=== PATIENT | female | born 1975 | race Hispanic/Latino ===

== ENCOUNTER 2017-08-25 23:20 | Emergency (ER) | payer SELFPAY ==
[2017-08-26] MEDS ORDERED: LIDOCAINE HCL-MPF 1% 2ML VIAL ONE (00:06)
[2017-08-26] MEDS ORDERED: CEFTRIAXONE SODIUM 1 GM ONE (00:07)
== END 2017-08-26 00:28 | disposition home or self-care (01) ==
LOC: EDH 23:20
DX: J02.0 Streptococcal pharyngitis (principal)
CPT/HCPCS: 82948; 87804 ×2; 87880; 96372; 99284; J0696; J3490

== ENCOUNTER 2018-11-13 23:38 | Emergency (ER) | payer OTHER ==
[2018-11-14] MEDS ORDERED: TETANUS/DIPHTHERIA TOXOID [ADULT] 0.5 ML VIAL IM ONE (01:01)
== END 2018-11-14 01:21 | disposition home or self-care (01) ==
LOC: EDH 23:38
DX: S61.411A Laceration without foreign body of right hand, initial encounter (principal); W25.XXXA Contact with sharp glass, initial encounter; Y93.89 Activity, other specified; Y92.098 Other place in other non-institutional residence as the place of occurrence of the external cause; Y99.8 Other external cause status; F41.9 Anxiety disorder, unspecified
CPT/HCPCS: 12002; 90471; 90714

== ENCOUNTER 2018-11-21 17:40 | Emergency (ER) | payer SELFPAY | END 2018-11-21 18:21 | disposition home or self-care (01) | LOC: EDH 17:40 | DX: S61.216A Laceration without foreign body of right little finger without damage to nail, initial encounter (principal); F41.9 Anxiety disorder, unspecified; X58.XXXA Exposure to other specified factors, initial encounter; Y93.89 Activity, other specified; Y92.89 Other specified places as the place of occurrence of the external cause; Y99.8 Other external cause status | CPT/HCPCS: 29130; 99281 ==

== ENCOUNTER 2025-03-20 03:06 | Emergency (ER) | payer BC ==
[~2025-03-20] VITALS: Ht 167.6 cm; Wt 129.3 kg
[2025-03-20 03:07] VITALS: TEMP 96.2
--- NOTE | 2025-03-20 03:14 | ERN ---
ED Note History of Present Illness Stated Complaint: Patient comes because she has a abdominal pain she has been stooling every other day still passinggasno hematuria eugenio discharge Chief Complaint: Flank Pain Time Seen by MD: 03:13 Allergies: Coded Allergies: No Known Allergies (Unverified Allergy, Unknown, 03/20/25) Past Medical History Past Medical History: Diabetes-Type II, Hypertension Surgical History: Cholecystectomy, Review of System Dictation Constitutional: Negative for fever,chills, and weight loss Eyes: Negative for injury, pain,redness, and discharge ENT: Negative for injury,pain or swelling Cardiovascular: Negative for chest pain, palpitations, and edema Respiratory: Negative for shortness of breath, cough, and wheezing, Abdomen/GI: Negative for abdominal pain, nausea, vomiting, diarrhea, and constipation Back: Negative for injury and pain : Negative for injury, bleeding and discharge MS/Extremity: Negative for injury and deformity Skin: Negative for rash, and discoloration Neuro: Negative for headache, weakness, numbness, tingling, and seizure Psych: Negative for suicide ideation, homicidal ideation, and hallucinations Initial Vital Sign VS Vital Signs Date Time Temp Pulse Resp B/P (MAP) Pulse Ox O2 Delivery O2 Flow Rate FiO2 03/20/25 03:07 96.3 80 16 147/81 98 Room Air Physical Exam Dictation General: awake, alert, NAD Head/Face: Normocephalic, atraumatic Eyes: PERRL, EOMI, vision at baseline ENT: oral cavity clear, TMs clear, no signs of infection Neck: Trachea midline, supple, no nuchal rigidity Cardiovascular: RRR, normal S1/S2, No MRGs, no JVD Respiratory: CTAB, no respiratory distress, No rales or wheezes Abdomen: Soft, non-tender, non-distended, normal bowel sounds, no guarding or rebound. Skin: Warm, dry, normal turgor, no rash MS/Extremity: Pulses equal, no cyanosis, neurovascular intact, FROM Neuro: COAx4, GCS 15, strength 5/5, CN 2-12 intact, normal cerebellar exam, normal gait, Psych: Normal behavior, mood, and affect normal Results (Laboratory/Radiology) Laboratory/Radiology Laboratory Tests Test 03/20/25 03:44 White Blood Count 7.0 K/uL (4.8-10.8) Red Blood Count 5.87 MIL/uL (4.00-5.50) H Hemoglobin 16.6 g/dL (12.0-16.0) H Hematocrit 49.1 % (36-48) H Mean Corpuscular Volume 83.6 fL (79-99) Mean Corpuscular Hemoglobin 28.3 pg (27.0-33.0) Mean Corpuscular Hemoglobin Concent 33.8 g/dL (32.0-36.0) Red Cell Distribution Width 12.1 % (11.0-15.5) Platelet Count 219 K/uL (130-400) Mean Platelet Volume 10.5 fL (7.5-10.5) Immature Granulocyte % (Auto) 0.3 % (0-1) Neutrophils (%) (Auto) 55.2 % (40.0-77.0) Lymphocytes (%) (Auto) 36.1 % (21.0-51.0) Monocytes (%) (Auto) 5.1 % (3.0-13.0) Eosinophils (%) (Auto) 2.7 % (0.0-8.0) Basophils (%) (Auto) 0.6 % (0.0-5.0) Neutrophils # (Auto) 3.9 K/uL (1.8-7.7) Lymphocytes # (Auto) 2.5 K/uL (1.0-4.8) Monocytes # (Auto) 0.4 K/uL (0.1-1.0) Eosinophils # (Auto) 0.19 K/uL (0.00-0.70) Basophils # (Auto) 0.04 K/uL (0.00-0.20) Absolute Immature Granulocyte (auto 0.02 K/uL (0-1) Nucleated Red Blood Cells 0.0 % (0.0-0.19) Sodium Level 139 mmol/L (136-145) Potassium Level 3.5 mmol/L (3.5-5.1) Chloride Level 103 mmol/L (101-111) Carbon Dioxide Level 27 mmol/L (21-32) Blood Urea Nitrogen 15 mg/dL (7-18) Creatinine 0.6 mg/dL (0.5-1.0) Glomerular Filtration Rate Calc 109 mL/min (>90) Random Glucose 254 mg/dL (70-105) H Total Calcium 9.6 mg/dL (8.5-10.1) Total Bilirubin 1.6 mg/dL (0.2-1.0) H Aspartate Amino Transf (AST/SGOT) 30 U/L (10-37) Alanine Aminotransferase (ALT/SGPT) 63 U/L (12-78) Alkaline Phosphatase 167 U/L (50-136) H Troponin I High Sensitivity < 4 ng/L (4-50) L Total Protein 8.6 g/dL (6.0-8.3) H Albumin 4.1 g/dL (3.5-5.0) Lipase 66 U/L (16-77) ED Course ED Course Orders Procedure Category Date Status Time Cbc With Differential LAB 03/20/25 Complete 03:14 Comprehensive LAB 03/20/25 Complete Metabolic Panel 03:14 Troponin I High LAB 03/20/25 Complete Sensitivity 03:14 12 Lead Ekg Tracing- EKG 03/20/25 Complete Technical 03:14 Lactated Ringers PHA 03/20/25 Complete 1000ml (Lactated 03:30 Morphine 4mg Syg PHA 03/20/25 Complete (Morphine 4mg Syg) 03:30 Ondansetron 4mg Inj PHA 03/20/25 Complete (Zofran 4mg Inj) 03:30 Ct Abdomen/Pelvis W/O CT 03/20/25 Resulted Contrast 03:14 Chest 1vw RAD 03/20/25 Resulted 03:14 Lipase LAB 03/20/25 Complete 03:14 Current Medications Medications (Trade) Dose Ordered Sig/Anthony Route PRN Reason Start Time Stop Time Status Last Admin Dose Admin Lactated Ringer's 1,000 ml @ 0 mls/hr ONCE ONCE IV 03/20/25 03:30 03/20/25 03:31 DC 03/20/25 03:44 Morphine Sulfate (morPHINE 4MG SYG) 4 mg ONCE ONCE IVP 03/20/25 03:30 03/20/25 03:31 DC 03/20/25 03:44 Ondansetron HCl (zoFRAN 4MG INJ) 4 mg ONCE ONCE IVP 03/20/25 03:30 03/20/25 03:31 DC 03/20/25 03:43 Vital Signs Date Time Temp Pulse Resp B/P (MAP) Pulse Ox O2 Delivery O2 Flow Rate FiO2 03/20/25 03:07 96.3 80 16 147/81 98 Room Air Medical Decision Making MDM Patient is constipated I said we will Give her some constipation meds MDM: Differential diagnosis: Rationale: Tests considered and ordered secondary to shared decision making include: Previous outside records reviewed: Old ER visits. Risk of complication and/or morbidity or mortality of patient management: None Medications-Per medication reconciliation Need for hospitalization: Patient does not meet criteria for hospitalization. Need for emergency major/minor surgery: No There are no social concerns with this patient. Prescription drug management Prescriptions will include symptomatic care Patient's prior external medical records from other ER visits were reviewed by me as indicated. Prior testing and results from previous visits were reviewed. Prior tests were taken into account with medical decision making and resource utilization, independent historian/historians were used to obtain complete medical history. I independently interpreted the test that were performed, results were reviewed by me and considered findings on radiology if ordered. Medical management and examination interpretation discussions were had by me with other qualified healthcare professionals as indicated for the patient's care. DX & DISP Disposition: Discharge Departure Impression: Primary Impression: Constipation Condition: Stable Scripts Lactulose (Lactulose) 10 Gram/15 Ml Solution 30 ML PO BID for constipation, #500 ML 0 Refills Prov: ROSALIE KENNEY MD 03/20/25 Polyethylene Glycol 3350 (Miralax) 17 Gram Powd.pack 1 PACKET PO DAILY for constipation for 2 Days, #2 PACKET 0 Refills dissolve in water Prov: ROSALIE KENNEY MD 03/20/25 Docusate Sodium (Colace) 100 Mg Capsule 100 MG PO TID for constipation, #30 CAP 0 Refills Prov: ROSALIE KENNEY MD 03/20/25 Referrals: SELF,REFERRAL (PCP) ROSALIE KENNEY MD Mar 20, 2025 03:14
--- NOTE | 2025-03-20 03:25 | EKG ---
[facility] Test Date: 2025-03-20 Test Time: 03:20:29 Pat Name: MIKE PAGE Department: ED Room: Gender: F Size Worker: [id number] : 1975 Requested By: ROSALIE KENNEY Order Number: [id number] Reading MD: Juarez De La O Measurements Intervals [place] Rate: 72 P: -10 VA: 176 QRS: -6 QRSD: 80 T: 4 QT: 389 QTc: 426 Interpretive Statements Sinus rhythm Anteroseptal infarct, age indeterminate No previous ECG available for comparison Electronically Signed On 03-22-2025 00:02:02 CDT by Juarez De La O Please click the below link to view image of tracing.
[2025-03-20] MEDS: LACTATED RINGERS 1000ML 1,000 ML IV ONE (03:44)
[2025-03-20 03:52] LABS: IMMATURE GRANULOCYTE ABSOLUTE 0.02 K/uL (0-1); NUCLEATED RED BLOOD CELLS 0.0 % (0.0-0.19); PLATELET COUNT (AUTO) 219 K/uL (130-400); RED BLOOD CELL COUNT(AUTO) 5.87 MIL/uL (4.00-5.50); RED CELL DISTRIBUTION WIDTH 12.1 % (11.0-15.5); WHITE BLOOD COUNT (AUTO) 7.0 K/uL (4.8-10.8)
--- NOTE | 2025-03-20 04:05 | HMCIMG ---
EXAM: CR Chest, 1 view CLINICAL HISTORY: Shortness of breath. COMPARISON: Chest radiograph dated 04/16/2013. FINDINGS: The lungs show no infiltrates or other acute findings. No pleural effusion or pneumothorax. The cardiomediastinal silhouette is within normal limits. No acute osseous abnormality. IMPRESSION: No acute cardiopulmonary process is evident. No interval changes. /[place]
[2025-03-20 04:09] LABS: CREATININE 0.6 mg/dL (0.5-1.0); GLOMERULAR FILTR. RATE CALC 109.0 mL/min (>90); GLUCOSE,RANDOM 254.0 mg/dL (70-105); SODIUM SERUM 139.0 mmol/L (136-145); UREA NITROGEN, BLOOD 15.0 mg/dL (7-18)
--- NOTE | 2025-03-20 04:09 | HMCIMG ---
EXAM: CT Abdomen and Pelvis without IV contrast CLINICAL HISTORY: Pain. TECHNIQUE: Thin collimated axial CT images of the abdomen and pelvis were obtained with sagittal and coronal reformatted images also submitted. CT scan is done according to ALARA (As Low As Reasonably Achievable). CONTRAST: None. COMPARISON: None. FINDINGS: The included lungs are clear. Mild fatty liver. Status post cholecystectomy. No focal abnormality within the pancreas, spleen, or adrenals. There is a punctate nonobstructive calculus at the left renal lower pole. No ureteral calculus or hydronephrosis bilaterally. Unremarkable urinary bladder. 2 cm anterior wall subserosal uterine fibroid. Unremarkable ovaries. No obvious bowel wall thickening, dilatation, or obstruction. Unremarkable appendix. A component of mild constipation is present in the colon. Grossly unremarkable abdominal vessels. No pathological lymphadenopathy in the abdomen or pelvis. No ascites or pneumoperitoneum. No acute bony abnormality is evident. Small, uncomplicated fat-containing umbilical hernia. IMPRESSIONS: No acute process in the abdomen or pelvis. Punctate nonobstructive left renal calculus. Subserosal uterine fibroid. Uncomplicated umbilical hernia. Mild fatty liver. A component of mild constipation is present in the colon. /[place]
[2025-03-20 04:12] LABS: ASPARTATE AMINOTRANSFERASE 30.0 U/L (10-37); TOTAL PROTEIN, SERUM 8.6 g/dL (6.0-8.3)
[2025-03-20] MEDS ORDERED: POLY17PO4 PO (04:29)
[2025-03-20] MEDS ORDERED: DOCU-116 PO (04:29)
[2025-03-20] MEDS ORDERED: LACT10SO85 PO (04:29)
[2025-03-20 04:48] VITALS: BP 123/83; PULSE 74; RESP 16; O2SAT 98
== END 2025-03-20 04:55 | disposition home or self-care (01) ==
LOC: EDH 03:06
DX: K59.00 Constipation, unspecified (principal); D25.2 Subserosal leiomyoma of uterus; K76.0 Fatty (change of) liver, not elsewhere classified; N20.0 Calculus of kidney; E11.9 Type 2 diabetes mellitus without complications; I10 Essential (primary) hypertension; Z90.49 Acquired absence of other specified parts of digestive tract; Z98.890 Other specified postprocedural states
CPT/HCPCS: 99284; 74176; 96374; 71045; 96361; 96375; 84484; 80053; 83690; 85025; 36415; 93005; J7120; J2405; J2270

== ENCOUNTER 2025-05-11 11:29 | Emergency (ER) | payer BC ==
[~2025-05-11] VITALS: Ht 162.6 cm; Wt 83.9 kg
[~2025-05-11 11:29] MED LIST: DOCU-116 PO; LACT10SO85 PO; POLY17PO4 PO
[2025-05-11] MEDS ORDERED: CLIN-141 PO (11:37)
[2025-05-11] MEDS ORDERED: IBUP-2077 PO (11:37)
--- NOTE | 2025-05-11 11:38 | ERN ---
ED Note History of Present Illness Stated Complaint: LEFT ARM PAIN, NECK PAIN Chief Complaint: Upper Extremity Pain/Injury Time Seen by MD: 11:30 Dictation: PATIENT IS HERE WITH COMPLAINTS OF NON TRAUMA NECK AND BACK PAIN SHE HAS HAD FOR SEVERAL DAYS. SHE HAS HAD NO FEVER NO CHILLS NO NAUSEA VOMITING. BUT HER MAIN COMPLAINT IS SHE HAS GOT SWELLING AND ERYTHEMA TO THE GUMLINE OF TOOTH 9. SHE HAS HAD THIS FOR SEVERAL DAYS MAYBE MUCH 10. NO FEVER NO CHILLS SHE DOES NOT HAVE A PRIMARY CARE DOCTOR HAS NOT TAKEN ANYTHING FOR PAIN NOR SHE HAD BEEN TO A DENTIST. Allergies: Coded Allergies: No Known Allergies (Unverified Allergy, Unknown, 03/20/25) Home Meds Active Scripts Lactulose (Lactulose) 10 Gram/15 Ml Solution, 30 ML PO BID for constipation, #500 ML 0 Refills Prov:ROSALIE KENNEY MD 03/20/25 Polyethylene Glycol 3350 (Miralax) 17 Gram Powd.pack, 1 PACKET PO DAILY for constipation for 2 Days, #2 PACKET 0 Refills dissolve in water Prov:ROSALIE KENNEY MD 03/20/25 Docusate Sodium (Colace) 100 Mg Capsule, 100 MG PO TID for constipation, #30 CAP 0 Refills Prov:ROSALIE KENNEY MD 03/20/25 Past Medical History Past Medical History: Diabetes-Type II, Hypertension Surgical History: Cholecystectomy, History: Not Applicable RN Note Reviewed/Agreed w/PFSH: Yes Review of System Dictation CONSTITUTIONAL: NEGATIVE EXCEPT FOR HPI HEAD/FACE: NEGATIVE EXCEPT FOR HPI EENT: NEGATIVE EXCEPT FOR HPI DENTAL PAIN 9. RESPIRATORY: NEGATIVE EXCEPT FOR HPI GASTROINTESTINAL/ABDOMINAL: NEGATIVE EXCEPT FOR HPI GENITOURINARY: NEGATIVE EXCEPT FOR HPI MUSCULOSKELETAL: NEGATIVE EXCEPT FOR HPI NECK AND ARM PAIN, NON TRAUMA INTEGUMENTARY: NEGATIVE EXCEPT FOR HPI NEUROLOGICAL/PSYCH: NEGATIVE EXCEPT FOR HPI HEMATOLOGIC/LYMPHATIC: NEGATIVE EXCEPT FOR HPI ALL SYSTEMS NEGATIVE, EXCEPT NOTED ABOVE. 13 POINT REVIEW OF SYSTEMS ASSESSED AND ALL NEGATIVE EXCEPT FOR ABOVE. Physical Exam Dictation VITAL SIGNS REVIEWED GENERAL APPEARANCE: ALERT, ORIENTED X 3, MILD ACUTE DISTRESS, WELL DEVELOPED, NOURISHED. HEAD AND FACE: NON-TRAUMATIC. EYES: PERRL, PINK CONJUNCTIVAS, EYELID NO TRAUMA, ANTERIOR CHAMBER WITH ARCUS SENILIS. EARS: PINNAS INTACT AND NO SIGNS OF TRAUMA OR ERYTHEMA EAR CANALS CLEAR AND NO DISCHARGE TM NO ERYTHEMA NOSE: NO DISCHARGE, NO BLEEDING. OROPHARYNX: GINGIVAL ERYTHEMA SWELLING SUPERIOR TO TOOTH 9. PHARYNX CLEAR,NO ERYTHEMA, TONSILS NO EXUDATES, NO ABSCESSES NOTED, MUCOUS MEMBRANE MOIST NECK: SUPPLE, NON-TENDER, NO THYROMEGALY, NO MASSES, NO JVD, NO BRUITS BREAST:DEFERRED CHEST:NO TENDERNESS, NO CREPITUS, NO PARADOXICAL MOVEMENT, NO RETRACTIONS LUNGS:CLEAR, WELL-VENTILATED, SYMMETRIC, NO RALES, NO WHEEZING, NO RHONCHI, NO STRIDOR, GOOD BREATH SOUNDS BILATERALLY HEART: REGULAR RATE, REGULAR RHYTHM, NO MURMUR, NO GALLOPS VASCULAR: NO PERIPHERAL EDEMA, ABDOMEN: SOFT, POSITIVE BOWEL SOUNDS, NONDISTENDED, NO GUARDING, NONTENDER, NO REBOUND, NO MASSES NO HEPATOMEGALY, NO SPLENOMEGALY, NO CRISTOBAL'S SIGN, NO HERNIAS. RECTAL: DEFERRED GENITAL: DEFERRED NEUROLOGICAL: NORMAL SPEECH, MOTOR FUNCTION INTACT, SENSORY FUNCTION INTACT MUSCULOSKELETAL: NECK NONTENDER, FULL RANGE OF MOTION, BACK NONTENDER, FULL RA NGE OF MOTION, EXTREMITIES: NONTENDER, FULL RANGE OF MOTION SKIN: COLOR PINK, DRY, NO TURGOR, NO RASH, NO LACERATIONS, NO ABRASIONS, NO CONTUSIONS. LYMPHATIC: DEFERRED Results (Laboratory/Radiology) Labs Reviewed?: Yes ED Course ED Course Orders Procedure Category Date Status Time Ibuprofen 800 Mg Tab PHA 05/11/25 Transmitted (Motrin) 12:00 1135/PATIENT MADE AWARE THAT WE WILL BE NO WORKUP DONE. SHE WILL BE PROVIDED IBUPROFEN 800 MG AND TOLD TO SEE HER DENTIST AND HER PRIMARY CARE DOCTOR. Medical Decision Making MDM MEDICAL DECISION-MAKING BASED ON EMPIRIC TREATMENT FOR A PROBABLE DENTAL ABSCESS PATIENT GIVEN IBUPROFEN FOR PAIN PRESCRIBED CLINDAMYCIN 300 MG Q.I.D. FOR 10 DAYS AND IBUPROFEN TOLD SEE HER PRIMARY CARE DOCTOR AND DENTIST PROBLEM DX & DISP Disposition: Discharge Departure Impression: Primary Impression: Dental caries into pulp Additional Impression: Shoulder pain Condition: Stable Scripts Ibuprofen (Ibuprofen 800 mg Tab) 800 Mg Tab 800 MG PO Q8H PRN for fever or pain, #30 TAB 0 Refills Prov: FRANCESCO VICK NP 05/11/25 Clindamycin HCl (Clindamycin HCl) 300 Mg Capsule 1 CAP PO QID for 10 Days, #40 CAP 0 Refills Prov: FRANCESCO VICK NP 05/11/25 Additional Instructions: FOLLOW-UP WITH PRIMARY CARE PROVIDER IN 1 TO 2 DAYS. TAKE MEDICATIONS DIRECTED HERE IN THE EMERGENCY ROOM. OKAY TO CONTINUE HOME MEDICATIONS UNLESS OTHERWISE DISCUSSED DURING YOUR VISIT IN THE EMERGENCY ROOM TODAY. RETURN TO YOUR NEAREST EMERGENCY ROOM IF SYMPTOMS WORSEN OR IF THERE IS NO IMPROVEMENT. CALL 911 IF YOU NEED IMMEDIATE ASSISTANCE. TAKE TYLENOL OR MOTRIN O [id number] NEEDED AND IF NO CONTRAINDICATIONS ARE PRESENT. INCREASE ORAL HYDRATION. A WOUND CULTURE OR URINE CULTURE WAS ORDERED HERE IN THE EMERGENCY ROOM DEPARTMENT PLEASE FOLLOW-UP WITH PRIMARY CARE PROVIDER AND ADVISE THEM TO GET REPEAT PORTS FROM OUR FACILITY. IF YOU HAD ANY RIAZ WRAP/SPLINTS THAT WERE APPLIED HERE, PLEASE DO NOT REMOVE THEM UNTIL YOU SEE YOUR PRIMARY CARE OR SPECIALTY. TAKE CLINDAMYCIN DIRECTED UNTIL GONE. TAKE TWO CAPSULES FOR THE 1ST DOSE THEN ONE CAPSULE EVERY 6 HOURS DIRECTED UNTIL GONE. TAKE IBUPROFEN WITH FOOD NEEDED FOR PAIN. SEE ONE OF THE DOCTORS ON THE LIST PROVIDED YOU FOR YOUR MUSCLE PAIN, SEE YOUR DENTIST FOR YOUR DENTAL PAIN Referrals: SELF,REFERRAL (PCP) Time of Disposition: 11:36 I have reviewed the case, and I agree with, Diagnosis and Plan FRANCESCO VICK NP May 11, 2025 11:38
[2025-05-11 13:29] VITALS: BP 144/88; PULSE 74; RESP 16; TEMP 97.3; O2SAT 100
== END 2025-05-11 14:07 | disposition home or self-care (01) ==
LOC: EDH 11:29
DX: K02.9 Dental caries, unspecified (principal); M25.512 Pain in left shoulder; E11.9 Type 2 diabetes mellitus without complications; I10 Essential (primary) hypertension; Z90.49 Acquired absence of other specified parts of digestive tract; Z98.890 Other specified postprocedural states
CPT/HCPCS: 99283

== ENCOUNTER 2025-05-24 04:16 | Emergency (ER) | payer BC ==
[~2025-05-24] VITALS: Ht 162.6 cm; Wt 83.9 kg
[~2025-05-24 04:16] MED LIST changes: +CLIN-141 PO; +IBUP-2077 PO
--- NOTE | 2025-05-24 04:19 | NUR ---
UA CUP PROVIDED, PT IN RESTROOM AT THIS TIME
--- NOTE | 2025-05-24 04:25 | NUR ---
PT DENIES PMH OF HTN
[2025-05-24 05:07] LABS: APPEARANCE,URINE CLEAR (CLEAR); GLUCOSE, URINE (UA) 70 mg/dL (NEGATIVE); LEUKOCYTE ESTERASE ,URINE 75 Leu/uL (NEGATIVE); NITRATE,URINE 1+ (NEGATIVE); OCCULT BLOOD,URINE NEGATIVE (NEGATIVE)
[2025-05-24 05:15] LABS: IMMATURE GRANULOCYTE ABSOLUTE 0.01 K/uL (0-1); NUCLEATED RED BLOOD CELLS 0.0 % (0.0-0.19); PLATELET COUNT (AUTO) 211 K/uL (130-400); RED BLOOD CELL COUNT(AUTO) 5.17 MIL/uL (4.00-5.50); RED CELL DISTRIBUTION WIDTH 11.9 % (11.0-15.5); WHITE BLOOD COUNT (AUTO) 6.5 K/uL (4.8-10.8)
[2025-05-24 05:26] LABS: CREATININE 0.7 mg/dL (0.5-1.0); GLOMERULAR FILTR. RATE CALC 105 mL/min (>90); GLUCOSE,RANDOM 210 mg/dL (70-105); SODIUM SERUM 140 mmol/L (136-145); UREA NITROGEN, BLOOD 9 mg/dL (7-18)
[2025-05-24 05:34] LABS: CREATINE KINASE, TOTAL 66 U/L (21-232)
--- NOTE | 2025-05-24 05:35 | ERN ---
ED Note History of Present Illness Stated Complaint: CP Chief Complaint: Chest Pain Time Seen by MD: 04:30 Dictation: This is a 50-year-old overweight female who presented to the emergency room with complaints of midsternal chest pressure. She stated that this started about 45 minutes prior to the presentation to the ER. She also reports a headache and she took Motrin yesterday this started around yesterday. Then she complains of dysuria. She was just seen on 05/11 in the same ER for toothache and gingivitis. At the time also she has complained about neck and back pain. Also reports constipation. Her last bowel movement was 3 days ago Temperature 98.4 pulse 98 respirations 20 blood pressure 169/83 with a pulse oximetry of 100% on room air Chronic medical problems include diabetes mellitus and hypertension Allergies: Coded Allergies: No Known Allergies (Unverified Allergy, Unknown, 03/20/25) Home Meds Discontinued Scripts Ibuprofen (Ibuprofen 800 mg Tab) 800 Mg Tab, 800 MG PO Q8H PRN for fever or pain, #30 TAB 0 Refills Prov:FRANCESCO VICK NP 05/11/25 Clindamycin HCl (Clindamycin HCl) 300 Mg Capsule, 1 CAP PO QID for 10 Days, #40 CAP 0 Refills Prov:FRANCESCO VICK NP 05/11/25 Lactulose (Lactulose) 10 Gram/15 Ml Solution, 30 ML PO BID for constipation, #500 ML 0 Refills Prov:ROSALIE KENNEY MD 03/20/25 Polyethylene Glycol 3350 (Miralax) 17 Gram Powd.pack, 1 PACKET PO DAILY for constipation for 2 Days, #2 PACKET 0 Refills dissolve in water Prov:ROSALIE KENNEY MD 03/20/25 Docusate Sodium (Colace) 100 Mg Capsule, 100 MG PO TID for constipation, #30 CAP 0 Refills Prov:ROSALIE KENNEY MD 03/20/25 Past Medical History Past Medical History: Diabetes-Type II Surgical History: Cholecystectomy, Family History: Negative History: Not Applicable RN Note Reviewed/Agreed w/PFSH: Yes Review of System Dictation Constitutional: Negative for fever,chills, and weight loss Eyes: Negative for injury, pain,redness, and discharge ENT: Negative for injury,pain or swelling Cardiovascular: Positive for chest pain, denied palpitations, and edema Respiratory: Negative for shortness of breath, cough, and wheezing, Abdomen/GI: Negative for abdominal pain, nausea, vomiting, diarrhea, and constipation Back: Negative for injury and positive for neck and back pain chronic and headache : Negative for injury, bleeding and discharge positive for dysuria MS/Extremity: Negative for injury and deformity Skin: Negative for rash, and discoloration Neuro: Negative for headache, weakness, numbness, tingling, and seizure Psych: Negative for suicide ideation, homicidal ideation, and hallucinations Initial Vital Sign VS Vital Signs Date Time Temp Pulse Resp B/P (MAP) Pulse Ox O2 Delivery O2 Flow Rate FiO2 05/24/25 04:17 98.4 98 20 169/83 100 Room Air 05/24/25 05:16 0 21 Physical Exam Dictation General: awake, alert, NAD Head/Face: Normocephalic, atraumatic Eyes: PERRL, EOMI, vision at baseline ENT: oral cavity clear, TMs clear, no signs of infection Neck: Trachea midline, supple, no nuchal rigidity Cardiovascular: RRR, normal S1/S2, No MRGs, no JVD Respiratory: CTAB, no respiratory distress, No rales or wheezes Abdomen: Soft, non-tender, non-distended, normal bowel sounds, no guarding or rebound. Skin: Warm, dry, normal turgor, no rash MS/Extremity: Pulses equal, no cyanosis, neurovascular intact, FROM Neuro: COAx4, GCS 15, strength 5/5, CN 2-12 intact, normal cerebellar exam, normal gait, Psych: Normal behavior, mood, and affect normal Extremities-trace edema without any palpable cords, Homans sign is negative Results (Laboratory/Radiology) Laboratory/Radiology Laboratory Tests Test 05/24/25 05:00 05/24/25 05:08 Urine Color DARK-YELLOW (YELLOW) Urine Appearance CLEAR (CLEAR) Urine pH 5.5 (5.0-8.0) Urine Specific [place] 1.015 (1.001-1.031) Urine Protein NEGATIVE mg/dL (NEGATIVE) Urine Glucose (UA) 70 mg/dL (NEGATIVE) H Urine Ketones 5 mg/dL (NEGATIVE) H Urine Occult Blood NEGATIVE (NEGATIVE) Urine Nitrate 1+ (NEGATIVE) H Urine Bilirubin NEGATIVE mg/dL (NEGATIVE) Urine Urobilinogen 0.2 mg/dL (0.2-1.0) Urine Leukocyte Esterase 75 Radha/uL (NEGATIVE) H Urine RBC 2-5 /HPF (0-1) H Urine WBC 26-50 /HPF (0-1) H Urine Squamous Epithelial Cells RARE /HPF (0-2) Urine Non-Squamous Epithelial Cells 2 /HPF (0-2) Urine Bacteria FEW /HPF (None Seen) White Blood Count 6.5 K/uL (4.8-10.8) Red Blood Count 5.17 MIL/uL (4.00-5.50) Hemoglobin 14.5 g/dL (12.0-16.0) Hematocrit 42.1 % (36-48) Mean Corpuscular Volume 81.4 fL (79-99) Mean Corpuscular Hemoglobin 28.0 pg (27.0-33.0) Mean Corpuscular Hemoglobin Concent 34.4 g/dL (32.0-36.0) Red Cell Distribution Width 11.9 % (11.0-15.5) Platelet Count 211 K/uL (130-400) Mean Platelet Volume 9.9 fL (7.5-10.5) Immature Granulocyte % (Auto) 0.2 % (0-1) Neutrophils (%) (Auto) 53.6 % (40.0-77.0) Lymphocytes (%) (Auto) 35.7 % (21.0-51.0) Monocytes (%) (Auto) 6.0 % (3.0-13.0) Eosinophils (%) (Auto) 3.7 % (0.0-8.0) Basophils (%) (Auto) 0.8 % (0.0-5.0) Neutrophils # (Auto) 3.5 K/uL (1.8-7.7) Lymphocytes # (Auto) 2.3 K/uL (1.0-4.8) Monocytes # (Auto) 0.4 K/uL (0.1-1.0) Eosinophils # (Auto) 0.24 K/uL (0.00-0.70) Basophils # (Auto) 0.05 K/uL (0.00-0.20) Absolute Immature Granulocyte (auto 0.01 K/uL (0-1) Nucleated Red Blood Cells 0.0 % (0.0-0.19) Sodium Level 140 mmol/L (136-145) Potassium Level 3.3 mmol/L (3.5-5.1) L Chloride Level 104 mmol/L (101-111) Carbon Dioxide Level 28 mmol/L (21-32) Blood Urea Nitrogen 9 mg/dL (7-18) Creatinine 0.7 mg/dL (0.5-1.0) Glomerular Filtration Rate Calc 105 mL/min (>90) Random Glucose 210 mg/dL (70-105) H Total Calcium 8.6 mg/dL (8.5-10.1) Total Creatine Kinase 66 U/L (21-232) Troponin I High Sensitivity < 4.0 ng/L (4-50) L Labs Reviewed?: Yes EKG Comment: Twelve lead EKG done on 05/24/2025 at 4:24 a.m. showed a heart rate of 90, IN interval 191, QRS 82, QT/QTC 374/459 Impression normal sinus rhythm with nonspecific ST-T changes noted. Overall somewhat low voltage in the precordial leads. I do not see any acute STT wave changes. EKG rhythm strip is somewhat low voltage normal sinus rhythm nonspecific changes. Interpreted by ER MD Dr. Alexis ED Course ED Course Orders Procedure Category Date Status Time Vital Signs Per CPOE 05/24/25 Transmitted Routine 04:19 Chest 1vw RAD 05/24/25 Taken 04:19 12 Lead Ekg Tracing- EKG 05/24/25 Logged Technical 04:19 Oxygen By Nc/Pulse Ox CPOE 05/24/25 Transmitted 04:19 Maintain Iv CPOE 05/24/25 Transmitted 04:19 Iv Insertion CPOE 05/24/25 Transmitted 04:19 Cardiac Monitoring CPOE 05/24/25 Transmitted 04:19 Pulse Oximetry With CPOE 05/24/25 Transmitted Vs And Prn 04:19 Cbc With Differential LAB 05/24/25 Complete 04:19 Activity: Br W/Brp CPOE 05/24/25 Transmitted With Assist 04:19 Urinalysis Profile LAB 05/24/25 Complete 04:19 Basic Metabolic Panel LAB 05/24/25 Complete 04:19 Cardiac Panel LAB 05/24/25 Complete 05:08 Ketorolac PHA 05/24/25 Complete Tromethamine 30mg/Ml 06:00 Famotidine 20mg Tab PHA 05/24/25 Complete (Pepcid 20mg Tab) 06:00 Culture Urine VICKIE 05/24/25 In Process 05:47 Current Medications Medications (Trade) Dose Ordered Sig/Anthony Route PRN Reason Start Time Stop Time Status Last Admin Dose Admin Famotidine (Pepcid 20mg Tab) 20 mg ONCE ONCE PO 05/24/25 06:00 05/24/25 06:01 DC 05/24/25 05:59 Ketorolac Tromethamine (toRADol) 30 mg ONCE ONCE IVP 05/24/25 06:00 05/24/25 06:01 DC 05/24/25 05:59 Vital Signs Date Time Temp Pulse Resp B/P (MAP) Pulse Ox O2 Delivery O2 Flow Rate FiO2 05/24/25 06:04 99 18 133/83 99 Room Air* 0 21 05/24/25 05:16 85 18 140/85 97 Room Air* 0 21 05/24/25 04:17 98.4 98 20 169/83 100 Room Air We will perform diagnostic labs, advanced imaging and administer medications according to the patient's complaint. Once the results are available, will review and personally interpreted the labs to rule out any acute life- threatening emergency the trach require immediate intervention and treatment. I will then re-evaluate the patient after treatment and diagnostic exams have return to determine whether the patient requires any further testing, can safely be discharged home or need further admission to hospital for additional treatment and evaluation. HEART Score Response (Comments) Value History: Low suspicion (0) 0 EKG: Normal 0 Age: 45-65yrs (+1) 1 Risk Factors: 1-2 risk factors (+1) 1 Initial Troponin: Normal limit (0) 0 HEART Score Risk: Low Risk for MACE (1-3) Total 2 Medical Decision Making MDM Differential diagnosis: Esophagitis, gastroesophageal reflux disease, gastritis, chest wall pain, unstable angina This is a 50-year-old overweight female who presented to the emergency room with complaints of midsternal chest pressure. She stated that this started about 45 minutes prior to the presentation to the ER. She also reports a headache and she took Motrin yesterday this started around yesterday. Then she complains of dysuria. She was just seen on 05/11 in the same ER for toothache and gingivitis. At the time also she has complained about neck and back pain. Temperature 98.4 pulse 98 respirations 20 blood pressure 169/83 with a pulse oximetry of 100% on room air Chronic medical problems include diabetes mellitus and hypertension 5:30 a.m. labs reviewed CBC is with a normal limits chest x-ray is unremarkable for any acute infiltrates. No pneumothorax. 5:50 a.m. BNP 7 resulted potassium is 3.3 rest of the labs are normal troponins are negative. Urinalysis showed positive leuko esterase and increased WBCs consistent with a UTI Her chronic headaches could also be related to the dental caries. I updated the patient on all the labs and possible thought process in terms of probably UTI. She also reported that she has been working a lot just to live [place] I encouraged her to drink lots of fluids and we will be discharging her on oral antibiotics for the UTI I also recommended a stool softener/laxative for the constipation Rationale: Tests considered and ordered secondary to shared decision making include: Previous outside records reviewed: Old ER visits. Risk of complication and/or morbidity or mortality of patient management: None Medications-Per medication reconciliation Need for hospitalization: Patient does not meet criteria for hospitalization. Need for emergency major/minor surgery: No There are no social concerns with this patient. Prescription drug management Prescriptions will include symptomatic care Patient's prior external medical records from other ER visits were reviewed by me as indicated. Prior testing and results from previous visits were reviewed. Prior tests were taken into account with medical decision making and resource utilization, independent historian/historians were used to obtain complete medical history. I independently interpreted the test that were performed, results were reviewed by me and considered findings on radiology if ordered. Medical management and examination interpretation discussions were had by me with other qualified healthcare professionals as indicated for the patient's care. Problem List Problem List: (1) UTI (urinary tract infection) (2) Constipation DX & DISP Disposition: Discharge Departure Impression: Primary Impression: UTI (urinary tract infection) Additional Impression: Constipation Condition: Stable Scripts Sennosides/Docusate Sodium (Senna Plus 8.6-50 mg Tablet) 8.6 Mg-50 Mg Tablet 1 TAB PO DAILY for constipation for 10 Days, #10 TAB 0 Refills Prov: LORENA ALEXIS MD 05/24/25 Nitrofurantoin Monohyd/M-Cryst (Macrobid 100 mg Capsule) 100 Mg Capsule 1 CAP PO BID for 7 Days, #14 CAP 0 Refills Prov: LORENA ALEXIS MD 05/24/25 Additional Instructions: Patient and the caregiver have been informed of all the diagnostic tests and the imaging conducted during the today's visit to the emergency room and has verbalized understanding of the results I have personally reviewed and interpreted all diagnostic exams performed here in the ER today as well as the vital signs documented by the nursing staff. The patient is now being discharged to home and should follow up with the primary care physician or the specialist as directed by the ER staff. Referrals: TARUN DÍAZ MD (PCP) LORENA ALEXIS MD May 24, 2025 05:35
[2025-05-24 05:46] LABS: ADD UA MICROSCOPIC YES
[2025-05-24 05:50] LABS: NON-SQUAMOUS EPITHELIAL CELL 2 /HPF (0-2); SQUAMOUS EPITHELIAL CELL,UR RARE /HPF (0-2)
[2025-05-24] MEDS: FAMOTIDINE 20MG TAB PO ONE (05:59)
[2025-05-24] MEDS ORDERED: NITR100C4 PO (06:30)
[2025-05-24] MEDS ORDERED: SENN-316 PO (06:35)
[2025-05-24 06:50] VITALS: BP 119/82; PULSE 91; RESP 18; TEMP 98.2; O2SAT 95
--- NOTE | 2025-05-24 07:05 | HMCIMG ---
EXAM: CR Chest, single view. CLINICAL HISTORY: Chest pain COMPARISON: Prior chest radiograph dated February 18, 2025 FINDINGS: The lungs show no infiltrate or other acute findings. No pleural effusion or pneumothorax. The cardiomediastinal silhouette is within normal limits. No acute osseous abnormality. IMPRESSION: No acute cardiopulmonary pathology is evident. Compared to the prior study, there is no significant interval change. /[place]
--- NOTE | 2025-05-24 07:59 | EKG ---
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
== END 2025-05-24 06:59 | disposition home or self-care (01) ==
LOC: EDH 04:16
DX: N39.0 Urinary tract infection, site not specified (principal); K59.00 Constipation, unspecified; E11.9 Type 2 diabetes mellitus without complications; Z90.49 Acquired absence of other specified parts of digestive tract; Z98.890 Other specified postprocedural states
CPT/HCPCS: 99284; 96374; 71045; 82550; 84484; 80048; 85025; 87086 ×2; 87186; 81001; 36415; 93005; J1885

== ENCOUNTER 2025-08-10 20:51 | Emergency (ER) | payer BC ==
[~2025-08-10] VITALS: Ht 167.6 cm; Wt 85.3 kg
[~2025-08-10 20:51] MED LIST changes: -CLIN-141 PO; -DOCU-116 PO; -IBUP-2077 PO; -LACT10SO85 PO; +NITR100C4 PO; -POLY17PO4 PO; +SENN-316 PO
[2025-08-10 21:22] LABS: RAPID GROUP A STREP POSITIVE (NEGATIVE)
[2025-08-10 21:27] LABS: SARS-CoV-2, RNA, NAAT NEGATIVE SARS CoV-2 (NEGATIVE)
[2025-08-10 21:32] LABS: INFLUENZA TYPE B Negative For Type B (NEGATIVE)
[2025-08-10 21:33] LABS: INFLUENZA TYPE A Positive For Type A (NEGATIVE)
[2025-08-10] MEDS: BENZOCAINE/MENTH/CETYLPYRD CL 1 EACH LOZENGE MM STA (21:55)
[2025-08-10] MEDS: BENZONATATE 100 MG CAPSULE PO STA (21:56)
[2025-08-10] MEDS ORDERED: AMOX1TAB16 PO (21:58)
[2025-08-10] MEDS ORDERED: OSEL75 PO (21:58)
[2025-08-10] MEDS ORDERED: ONDA-243 PO (21:58)
--- NOTE | 2025-08-10 21:59 | ERN ---
ED Note History of Present Illness Stated Complaint: C/O N X V, COUGH,SORE THROAT,HEADACHES, FEVER,CHIL Chief Complaint: Sore Throat Time Seen by MD: 21:02 Time Seen by Midlevel: 21:06 Dictation: 50-year-old female coming in with complaints of sore throat for three days and body aches and cough since yesterday. Patient denies having any sick contacts. Denies any medical history. Allergies: Coded Allergies: No Known Allergies (Unverified Allergy, Unknown, 03/20/25) Home Meds Active Scripts Sennosides/Docusate Sodium (Senna Plus 8.6-50 mg Tablet) 8.6 Mg-50 Mg Tablet, 1 TAB PO DAILY for constipation for 10 Days, #10 TAB 0 Refills Prov:LORENA CHARLES MD 05/24/25 Nitrofurantoin Monohyd/M-Cryst (Macrobid 100 mg Capsule) 100 Mg Capsule, 1 CAP PO BID for 7 Days, #14 CAP 0 Refills Prov:LORENA CHARLES MD 05/24/25 Past Medical History Past Medical History: Diabetes-Type II, High Cholesterol, Hypertension Surgical History: Cholecystectomy, Family History: Negative History: Not Applicable Review of System Dictation Constitutional: Complaining of generalized malaise Eyes: Negative for injury, pain,redness, and discharge ENT: Complaining of sore throat Cardiovascular: Negative for chest pain, palpitations, and edema Respiratory: Complaining of cough Abdomen/GI: Negative for abdominal pain, nausea, vomiting, diarrhea, and constipation Back: Negative for injury and pain : Negative for injury, bleeding and discharge MS/Extremity: Negative for injury and deformity Skin: Negative for rash, and discoloration Neuro: Negative for headache, weakness, numbness, tingling, and seizure Psych: Negative for suicide ideation, homicidal ideation, and hallucinations Review of Systems: was completed Initial Vital Sign VS Vital Signs Date Time Temp Pulse Resp B/P (MAP) Pulse Ox O2 Delivery O2 Flow Rate FiO2 08/10/25 20:55 99.5 114 20 140/84 98 Room Air Physical Exam Dictation General: awake, alert, NAD Head/Face: Normocephalic, atraumatic Eyes: PERRL, EOMI, vision at baseline ENT: oral cavity clear, TMs clear, erythema noted to the pharynx area, no exudate, no tonsillar effacement with the patient for peritonsillar abscess Neck: Trachea midline, supple, no nuchal rigidity Cardiovascular: RRR, normal S1/S2, No MRGs, no JVD Respiratory: CTAB, no respiratory distress, No rales or wheezes Abdomen: Soft, non-tender, non-distended, normal bowel sounds, no guarding or rebound. Skin: Warm, dry, normal turgor, no rash MS/Extremity: Pulses equal, no cyanosis, neurovascular intact, FROM Neuro: COAx4, GCS 15, strength 5/5, CN 2-12 intact, normal cerebellar exam, normal gait, Psych: Normal behavior, mood, and affect normal Results (Laboratory/Radiology) Laboratory/Radiology Laboratory Tests Test 08/10/25 20:56 Influenza Type A Antigen Positive For Type A Influenza Type B Antigen Negative For Type B SARS-CoV-2, RNA, NAAT NEGATIVE SARS CoV-2 Group A Streptococcus Rapid POSITIVE (NEGATIVE) *A Labs Reviewed?: Yes ED Course ED Course Orders Procedure Category Date Status Time Covid Rna Naat LAB 08/10/25 Complete 20:54 Influenza Type A & B, LAB 08/10/25 Complete Rapid 20:54 Rapid (Group A Strep) LAB 08/10/25 Complete 20:54 Acetaminophen 500mg PHA 08/10/25 In Process Tab (Tylenol 500mg T 22:00 Ketorolac PHA 08/10/25 In Process Tromethamine 15mg/Ml 22:00 Benzonatate 100 Mg PHA 08/10/25 Complete Capsule (Tessalon 100 21:49 Benzocaine/Menth/Cetylpyrd PHA 08/10/25 Complete Cl (Cepacol S 21:49 Current Medications Medications (Trade) Dose Ordered Sig/Anthony Route PRN Reason Start Time Stop Time Status Last Admin Dose Admin Acetaminophen (TYLenol 500MG TAB) 1,000 mg ONCE ONCE PO 08/10/25 22:00 08/10/25 22:01 Benzocaine (Cepacol Sore Throat Lozenge) 1 each Q4H STAT MM 08/10/25 21:49 08/10/25 21:51 DC Benzonatate (Tessalon 100mg Caps) 200 mg ONCE STAT PO 08/10/25 21:49 08/10/25 21:51 DC Ketorolac Tromethamine (toRADol) 15 mg ONCE ONCE IM 08/10/25 22:00 08/10/25 22:01 Vital Signs Date Time Temp Pulse Resp B/P (MAP) Pulse Ox O2 Delivery O2 Flow Rate FiO2 08/10/25 20:55 99.5 114 20 140/84 98 Room Air Medical Decision Making MDM MDM: 50-year-old female coming in with complaints of sore throat for three days and body aches and cough since yesterday. Patient denies having any sick contacts. Denies any medical history. positive for influenza a and strep throat. Patient will receive symptomatic control here in the emergency room and will be discharged with the Tamiflu and other antibiotics for her strep throat. Educated patient on when to return back to the emergency room and to follow up with PCP in 1-2 days. Patient verbalized understanding, answered all questions. Differential diagnosis: Has a COVID, flu, strep, viral syndrome Rationale: Tests considered and ordered secondary to shared decision making include: Previous outside records reviewed: Old ER visits. Risk of complication and/or morbidity or mortality of patient management: None Medications-Per medication reconciliation Need for hospitalization: Patient does not meet criteria for hospitalization. Need for emergency major/minor surgery: No There are no social concerns with this patient. Prescription drug management Prescriptions will include symptomatic care Patient's prior external medical records from other ER visits were reviewed by me as indicated. Prior testing and results from previous visits were reviewed. Prior tests were taken into account with medical decision making and resource utilization, independent historian/historians were used to obtain complete medical history. I independently interpreted the test that were performed, results were reviewed by me and considered findings on radiology if ordered. Medical management and examination interpretation discussions were had by me with other qualified healthcare professionals as indicated for the patient's care. DX & DISP Disposition: Discharge Departure Impression: Primary Impression: Influenza A Additional Impression: Strep pharyngitis Condition: Stable Scripts Amoxicillin/Potassium Clav (Amox Tr-K Clv 875-125 mg Tab) 875 Mg-125 Mg Tablet 1 EACH PO BID for 5 Days, #10 TAB 0 Refills Prov: GTZ,SHAWN FIELD CHECKER 08/10/25 Ondansetron (Ondansetron Odt) 4 Mg Tab.rapdis 4 MG PO Q6HPRN PRN for nausea for 3 Days, #16 TAB 0 Refills Prov: GTZ,SHAWN FIELD CHECKER 08/10/25 Oseltamivir Phosphate (Tamiflu) 75 Mg Cap 75 MG PO BID for 5 Days, #10 CAP Prov: SHAWN GTZ CNP 08/10/25 Additional Instructions: Antibiotic and Tamiflu as prescribed. Take Zofran as needed for your Tamiflu side-effect. Follow up with your primary care provider in 1-2 days. You can take Tylenol or Motrin for fever control. If you are having any nasal condition you can add Sudafed or Mucinex. If you have any worsening symptoms please return to the emergency room. Referrals: TARUN DÍAZ MD (PCP) Time of Disposition: 21:56 I have reviewed the case, and I agree with, Diagnosis and Plan SHAWN GTZ CNP Aug 10, 2025 21:59
[2025-08-10 22:03] VITALS: BP 135/66; PULSE 89; RESP 18; TEMP 99.5; O2SAT 99
== END 2025-08-10 22:10 | disposition home or self-care (01) ==
LOC: EDH 20:51
DX: J10.1 Influenza due to other identified influenza virus with other respiratory manifestations (principal); J02.0 Streptococcal pharyngitis; E11.9 Type 2 diabetes mellitus without complications; E78.00 Pure hypercholesterolemia, unspecified; I10 Essential (primary) hypertension; Z20.822 Contact with and (suspected) exposure to COVID-19; Z90.49 Acquired absence of other specified parts of digestive tract; Z98.890 Other specified postprocedural states
CPT/HCPCS: 99284; 87635; 87880; 87804 ×2; 96372 ×2; J1885; J0696